=== PATIENT | female | born 1985 | race Two or more races ===

== ENCOUNTER 2022-02-10 14:05 | Emergency (ER) | payer MEDICAID ==
[~2022-02-10] VITALS: Ht 172.7 cm; Wt 45.5 kg
[2022-02-10] MEDS ORDERED: HYDROcodone-ACET 5/325MG TAB PO ONE (16:00)
[2022-02-10] MEDS ORDERED: amLODIPine BESYLATE 5 MG TAB PO ONE (16:00)
[2022-02-10 16:54] VITALS: BP 160/109
== END 2022-02-10 16:53 | disposition home or self-care (01) ==
LOC: ER 14:09
DX: I10 Essential (primary) hypertension (principal)
CPT/HCPCS: 81025

== ENCOUNTER 2024-06-05 10:55 | Inpatient (IN) | payer MEDICAID ==
[~2024-06-05] VITALS: Ht 172.7 cm; Wt 77.5 kg
[2024-06-05 12:08] LABS: Urine Bacteria FEW /hpf (None Seen); Urine Blood Negative /uL (Negative); Urine Clarity Ex.Turbid (Clear); Urine Color Orange (Yellow); Urine Hyaline Cast MANY /lpf (0 - 2); Urine Mucus MODERATE (None Seen); Urine Protein, UAD 2+ (Negative); Urine Specific Gravity 1.026 (1.001-1.035); Urine Squamous Epithelial Cell MOD /hpf (<5); Urine Urobilinogen 12 mg/dL (Negative); Urine WBC 290 /hpf (0 - 5); Urine pH 6.5 (5.0-9.0)
--- NOTE | 2024-06-05 12:08 | ED.PDOC ---
GI ASSESSMENT HPI Comments A 38 YEAR OLD FEMALE PRESENTS TO THE ED WITH COMPLAINT OF NAUSEA, VOMITING, AND PAINFUL URINATION. PATIENT STATES SHE HAS BEEN EXPERIENCING NAUSEA, VOMITING, AND PAINFUL URINATION FOR THE PAST 1 WEEK. PATIENT REPORTS SHE HAS BEEN UNABLE TO HOLD ANYTHING DOWN A RESULT OF HER SYMPTOMS. PATIENT DENIES HEMATURIA, FLANK PAIN, FEVER, CHILLS, SHORTNESS OF BREATH, CHEST PAIN, ABDOMINAL PAIN, HEADACHE, OR OTHER COMPLAINTS. NO OTHER SYMPTOMS OR MODIFYING FACTORS AT THIS TIME. PATIENT IS ALERT, ORIENTED X 4, AND HAS STEADY GAIT. 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 Pertinent TOOL HONING MACHINE SET UP OPERATOR History Family History Family History: Reviewed,noncontributory to illness, No family hx of Cancer, No family hx of DM, No family hx of Heart raj, No family hx of HTN, No family hx ofKidney raj, No family hx of Liver raj, No family hx of Lung raj, No family hx of Stroke Social History Smoker: Non-Smoker Alcohol: Denies ETOH Use Drugs: Denies Drug Use Lives In: Home Constitutional: denies: chills, diaphoresis, fatigue, fever, malaise, sweats, weakness, others EENTM: denies: blurred vision, double vision, ear bleeding, ear discharge, ear drainage, ear pain, ear ringing, eye pain, eye redness, hearing loss, mouth pain, mouth swelling, nasal discharge, nose bleeding, nose congestion, nose pain, photophobia, tearing, throat pain, throat swelling, voice changes, others Respiratory: denies: cough, hemoptysis, orthopnea, SOB at rest, shortness of breath, SOB with excertion, stridor, wheezing, others Cardiovascular: denies: chest pain, dizzy spells, diaphoresis, Dyspnea on exertion, edema, irregular heart beat, left arm pain, lightheadedness, palpitations, PND, syncope, others Gastrointestinal: reports: nausea, vomiting; denies: abdomen distended, abdominal pain, blood streaked bowels, constipated, diarrhea, dysphagia, diffic ulty swallowing, hematemesis, melena, poor appetite, poor fluid intake, rectal bleeding, rectal pain, others Genitourinary: reports: burning, dysuria; denies: abnormal vagina bleeding, dyspareunia, flank pain, frequency, hematuria, incontinence, pain, , vagina discharge, urgency, others Neurological: denies: dizziness, fainting, headache, left sided numbness, left sided weakness, numbness, paresthesia, pre-existing deficit, right sided numbness, right sided weakness, seizure, speech problems, tingling, tremors, weakness, others Musculoskeletal: denies: back pain, gout, joint pain, joint swelling, muscle pain, muscle stiffness, neck pain, others Integumetry: denies: bruises, change in color, change in hair/nails, dryness, laceration, lesions, lumps, rash, wounds, others Allergic/Immunocompromised: denies: Difficulty Healing, Frequent Infections, Hives, Itching, others Hematologic/Lymphatic: denies: anemia, blood clots, easy bleeding, easy bruising, swollen glands, others Endocrine: denies: excessive hunger, excessive sweating, excessive thirst, excessive urination, flushing, intolerance to cold, intolerance to heat, unexplained weight gain, unexplained weight loss, others Psychiatric: denies: anxiety, bipolar disorder, depression, hopeless, panic disorder, schizophrenia, sleepless, suicidal, others All Other Systems: Reviewed and Negative Physical Exam General Appearance: No Apparent Distress, Normal HEENT: Normal ENT Inspection, PERRL/EOMI, Pharynx Normal, TMs Normal Neck: Full Range of Motion, Non-Tender, Normal, Normal Inspection Respiratory: Chest Non-Tender, Lungs Clear, No Accessory Muscle Use, No Respiratory Distress, Normal Breath Sounds Cardiovascular: No Edema, No JVD, No Murmur, No Gallop, Normal Peripheral Pulses, Regular Rate/Rhythm Breast Exam: Deferred Gastrointestinal: No Organomegaly, Non Tender, No Pulsatile Mass, Normal Bowel Sounds, Soft Genitalia: Deferred Pelvic: Deferred Rectal: Deferred Extremities: No calf tenderness, Normal capillary refill, Normal inspection, Normal range of motion, Non-tender, No pedal edema Musculoskeletal : Apperance: Normal Neurologic: Alert, rope tow operator II-XII nml as Tested, No Motor Deficits, Normal Affect, Normal Mood, No Sensory Deficits Cerebellar Function: Normal Reflexes: Normal Skin: Dry, Normal Color, Warm Peripheral Pulses: 2+ carotid (R), 2+ carotid (L) Lymphatic: No Adenopathy Was a procedure done? Was a procedure done?: No GI differential Dx Differential Diagnosis: Gastritis/PUD, Inflammatory BD, UTI, Dehydration, Food Poisoning, , Viral X-Ray, Labs, Meds, VS Vital Signs Date Time Temp Pulse Resp B/P (MAP) Pulse Ox O2 Delivery O2 Flow Rate FiO2 06/05/24 11:46 98.2 117 20 94/79 (84) 98 98.2 06/05/24 11:46 117 20 98 Room Air 06/05/24 11:36 98.2 117 20 94/79 (84) 98 Lab Test 06/05/24 12:00 06/05/24 11:31 Range/Units White Blood Count 6.0 4.4-10.8 10^3/uL Red Blood Count 4.23 4.0-5.20 10^6/uL Hemoglobin 14.6 12.2-16.2 g/dL Hematocrit 43.4 36.0-46.0 % Mean Corpuscular Volume 102.7 H 80.0-100.0 fL Mean Corpuscular Hemoglobin 34.6 H 28.0-32.0 pg Mean Corpuscular Hemoglobin Concent 33.7 32.0-36.0 g/dL Red Cell Distribution Width 15.5 H 11.8-14.3 % Platelet Count 290 140-450 10^3/uL Mean Platelet Volume 8.9 6.9-10.8 fL Neutrophils (%) (Auto) 52.2 37.0-80.0 % Lymphocytes (%) (Auto) 32.2 10.0-50.0 % Monocytes (%) (Auto) 12.6 H 0.0-12.0 % Eosinophils (%) (Auto) 1.9 0.0-7.0 % Basophils (%) (Auto) 1.1 0.0-2.0 % Neutrophils # (Auto) 3.2 1.6-8.6 10 ^3/uL Lymphocytes # (Auto) 1.9 0.4-5.4 10 ^3/uL Monocytes # (Auto) 0.8 0-1.3 10 ^3/uL Eosinophils # (Auto) 0.1 0-0.8 10 ^3/uL Basophils # (Auto) 0.1 0-0.2 10 ^3/uL Nucleated Red Blood Cells 0.1 % Sodium Level 134 L 136-145 mmol/L Potassium Level 2.5 *L 3.5-5.1 mmol/L Chloride Level 94 L 98-107 mmol/L Carbon Dioxide Level 24 20-31 mmol/L Anion Gap 16 H 5-15 Blood Urea Nitrogen 13 9-23 mg/dL Creatinine 1.05 H 0.550-1.02 mg/dL Glomerular Filtration Rate Calc 69 >90 mL/min BUN/Creatinine Ratio 12.4 10.0-20.0 Serum Glucose 133 H 74-106 mg/dL Calcium Level 10.8 H 8.7-10.4 mg/dL Urine Color [place] H Yellow Urine Clarity Ex.turbid Clear Urine pH 6.5 5.0-9.0 Urine Specific [place] 1.026 1.001-1.035 Urine Protein 2+ H Negative Urine Ketones 1+ H Negative Urine Blood Negative Negative /uL Urine Nitrite Negative Negative Urine Bilirubin 2+ H Negative Urine Urobilinogen 12 H Negative mg/dL Urine Leukocyte Esterase 3+ Negative /uL Urine RBC 21 0 - 4 /hpf Urine WBC 290 0 - 5 /hpf Urine Squamous Epithelial Cells Mod <5 /hpf Urine Bacteria Few H None Seen /hpf Urine Hyaline Casts Many 0 - 2 /lpf Urine Mucus Moderate None Seen Urine Glucose Normal Normal mg/dL Urine Test Negative Negative Current Medications Medications (Trade) Dose Ordered Sig/Joelle Route Start Time Stop Time Status Last Admin Sodium Chloride 1,000 ml @ 1,000 mls/hr Q1H ONCE IV 06/05/24 12:00 06/05/24 12:59 DC 06/05/24 12:16 Potassium Bicarbonate (Klor-Con/Ef) 75 meq ONCE ONCE PO 06/05/24 12:45 06/05/24 12:46 DC 06/05/24 13:03 Sodium Chloride 1,000 ml @ 1,000 mls/hr Q1H ONCE IV 06/05/24 12:45 06/05/24 13:44 DC 06/05/24 13:35 X-Ray, Labs, Meds, VS Comment EXTERNAL MEDICAL RECORDS REVIEWED: [NONE] INDEPENDENT HISTORIANS: [NONE] SOCIAL DETERMINANTS OF HEALTH: [NONE] LABS ORDERED: CBC, BMP, UA, URINE REVIEWED AND INTERPRETED RESULTS: NA 134, K 2.5, GLUC 133, LEUKO 3+, KET 1+ IMAGING ORDERED: NONE TREATMENTS ORDERED: NS 2L IV, ZOFRAN 4 MG IV, POTASSIUM 75 MEQ [address] ROCEPHIN 1 G IV PROCEDURES PERFORMED: NONE CRITICAL CARE TIME: NONE I HAVE DISCUSSED THE PATIENT WITH THE ATTENDING PHYSICIAN DR. MOYA AND HE AGREES WITH THE PATIENT'S PLAN OF CARE. UPON MY PHYSICAL EXAMINATION, THE PATIENT WAS ILL IN APPEARANCE, BUT WAS IN NO ACUTE DISTRESS AT THIS TIME, PATIENT HAD NO GUARDING OR REBOUND TENDERNESS NOTED UPON PALPATION TO HER ABDOMEN. MY DIFFERENTIAL DIAGNOSIS INCLUDES, UTI, ACUTE CYSTITIS, GASTRITIS, DEHYDRATION, ELECTROLYTE IMBALANCE, VIRAL SYNDROME, FOOD POISONING, HYPOKALEMIA. LABS WERE ORDERED FOR THE PATIENT WHICH REVEALED A SODIUM OF 134, POTASSIUM OF 2.5, GLUCOSE OF 133, LEUKOCYTES 3+ IN HER URINE, AND KETONES 1+ IN HER URINE. PATIENT WAS MEDICATED HERE IN THE ED WITH 2 L NORMAL SALINE IV, ZOFRAN 4 MG IV, POTASSIUM [address] AND ROCEPHIN 1 G IV. DUE TO THE PATIENT'S INTRACTABLE NAUSEA AND VOMITING URINARY TRACT INFECTION, AND HYPOKALEMIA, I HAVE DETERMINED THE PATIENT NEEDS TO BE ADMITTED FOR FURTHER TREATMENT AND EVALUATION. THE ON-CALL HOSPITALIST WILL BE CONTACTED FOR ADMISSION OF THIS PATIENT. Time of 1ST Reevaluation: 13:00 Reevaluation 1ST: Unchanged Patient Education/Counseling: Diagnosis, Treatment Family Education/Counseling: Diagnosis, Treatment Departure 1 Departure Time of Disposition: 13:00 Impression: Primary Impression: Intractable nausea and vomiting Additional Impressions: Acute UTI (urinary tract infection) Hypokalemia Disposition: ADMITTED INPATIENT Admit to: Med Surg Condition: Serious Critical Care Note Critical Care Time?: No Stability Stability form required: No Unstable for transfer: Requires medication, ED Physician Assesment, Possible rapid decline I personally scribed for KISHORE GRIFFITH ([email or web address]) on 06/05/24 at 12:08. Electronically submitted by Giles Moreno ([email or web address]). I personally scribed for KISHORE GRIFFITH ([email or web address]) on 06/05/24 at 13:30. Electronically submitted by Giles Moreno ([email or web address]). KISHORE GRIFFITH Jun 05, 2024 12:08
[2024-06-05] MEDS: SODIUM CHLORIDE 0.9% 1,000 ML IV ONE ×2 (12:16→13:35)
[2024-06-05 12:17] LABS: Basophils # (auto) 0.1 10 ^3/uL (0-0.2); Basophils % (auto) 1.1 % (0.0-2.0); Eosinophils # (auto) 0.1 10 ^3/uL (0-0.8); Eosinophils % (auto) 1.9 % (0.0-7.0); Hematocrit 43.4 % (36.0-46.0); Hemoglobin 14.6 g/dL (12.2-16.2); Lymphocytes # (auto) 1.9 10 ^3/uL (0.4-5.4); Lymphocytes % (auto) 32.2 % (10.0-50.0); Mean Corpuscular Hemoglobin 34.6 pg (28.0-32.0); Mean Corpuscular Hgb Conc. 33.7 g/dL (32.0-36.0); Mean Corpuscular Volume 102.7 fL (80.0-100.0); Monocytes # (auto) 0.8 10 ^3/uL (0-1.3); Monocytes % (auto) 12.6 % (0.0-12.0); Neutrophils # (auto) 3.2 10 ^3/uL (1.6-8.6); Neutrophils % (auto) 52.2 % (37.0-80.0); Nucleated Red Blood Cells % 0.1 %; Platelet Count (auto) 290 10^3/uL (140-450); Red Blood Cells 4.23 10^6/uL (4.0-5.20); Red Cell Distribution Width 15.5 % (11.8-14.3)
[2024-06-05] MEDS: ONDANSETRON HCL 4 MG/2 ML VIAL IV ONE (12:20)
[2024-06-05 12:24] LABS: Anion Gap 16 (5-15); Carbon Dioxide 24 mmol/L (20-31)
[2024-06-05 12:30] LABS: BUN/Creatinine Ratio 12.4 (10.0-20.0); Blood Urea Nitrogen 13 mg/dL (9-23)
[2024-06-05 12:34] LABS: Calcium 10.8 mg/dL (8.7-10.4); Chloride 94 mmol/L (98-107); Glucose 133 mg/dL (74-106); Sodium 134 mmol/L (136-145)
[2024-06-05 12:36] LABS: Potassium 2.5 mmol/L (3.5-5.1)
[2024-06-05] MEDS: cefTRIAXone 1GM/50ML D5W 50 ML IV ONE (12:50)
[2024-06-05] MEDS: POTASSIUM EFFERVESENT TAB 25 MEQ PO ONE (13:03)
[2024-06-05] MEDS ORDERED: METOCLOPRAMIDE HCL 5MG/ml INJ 2ml VIAL IV ONE (14:15)
[2024-06-05] MEDS ORDERED: HYDROcodone-ACET 5/325MG TAB PO PRN (16:30)
--- NOTE | 2024-06-05 16:45 | DVHHP2 ---
History of Present Illness Reason for Visit: Nausea, vomiting, and dysuria History of Present Illness Emma Funk is a 38-year-old female with past medical history of hypertension and anxiety who presents to the ED for nausea, vomiting, and dysuria x1 week. Patient states that she has been having the symptoms and unable to hold food down. Patient also reports that she has no recent sick contacts nor has she been sick recently nor she ingested any spoiled food, denies chest pain, shortness of breath, abdominal pain, hematuria, urinary frequency, dizziness, fever, chills, chest pain, and lightheadedness. Cardiovascular: HTN Psych: Anxiety Past Surgical History: None Family History: Cancer, DM, Other (Mom with diabetes living and dad with lung cancer now ) Smoke: No ALCOHOL: none Drugs: None Lives: with Family Domestic Violence: Neg Review of Systems Constitutional: No: Fever, Chills, Sweats, Weakness, Malaise, Other Eyes: No: Pain, Vision change, Conjunctivae inflammation, Eyelid inflammation, Other, Redness ENT: No: Ear pain, Ear discharge, Nose pain, Nose discharge, Nose congestion, Mouth pain, Mouth swelling, Throat pain, Throat swelling, Other Respiratory: No: Cough, Dry, Shortness of breath, SOB with excertion, Wheezing, Hemoptysis, Pleuritic Pain, Sputum, Wheezing, Other Cardiovascular: No: Chest Pain, Palpitations, Orthopnea, Paroxysmal Noc. Dyspnea, Edema, Lt Headedness, Other Gastrointestinal: Nausea, Vomiting; No: Abdominal Pain, Diarrhea, Constipation, Melena, Hematochezia, Other Genitourinary: Dysuria; No Frequency, No Incontinence, No Hematuria, No Retention, No Other Musculoskeletal: No: other, neck pain, shoulder pain, arm pain, back pain, hand pain, leg pain, foot pain Skin: No: Rash, Lesions, Jaundice, Bruising, Other Neurological: No: Weakness, Numbness, Incoordination, Change in speech, Confusion, Seizures, Other Allergies: Coded Allergies: NO KNOWN ALLERGIES (Unverified , 04/22/12) Exam Vital Signs Vital Signs Date Time Temp Pulse Resp B/P (MAP) Pulse Ox O2 Delivery O2 Flow Rate FiO2 06/05/24 11:46 98.2 117 20 94/79 (84) 98 98.2 06/05/24 11:46 Room Air General Appearance: Alert, Oriented X3, Cooperative, No acute distress HEENT: Atraumatic, PERRLA, EOMI, Mucous membr. moist/pink Respiratory: Clear to auscultation, Normal air movement Cardiovascular: Regular rate, Normal S1, Normal S2, No murmurs Abdominal: Normal bowel sounds, Soft, No tenderness, No hepatospenomegaly, No masses Extremities: No clubbing, No cyanosis, No edema, Normal pulses, No tenderness/swelling Skin: No rashes, No breakdown, No significant lesion Neuro: Normal gait, Normal speech, Strength at 5/5 X4 ext, Normal tone, Sensation intact Psych/Mental Status: Mental status NL, Mood NL Labs/Xrays Labs Test 06/05/24 12:00 06/05/24 11:31 Range/Units White Blood Count 6.0 4.4-10.8 10^3/uL Red Blood Count 4.23 4.0-5.20 10^6/uL Hemoglobin 14.6 12.2-16.2 g/dL Hematocrit 43.4 36.0-46.0 % Mean Corpuscular Volume 102.7 H 80.0-100.0 fL Mean Corpuscular Hemoglobin 34.6 H 28.0-32.0 pg Mean Corpuscular Hemoglobin Concent 33.7 32.0-36.0 g/dL Red Cell Distribution Width 15.5 H 11.8-14.3 % Platelet Count 290 140-450 10^3/uL Mean Platelet Volume 8.9 6.9-10.8 fL Neutrophils (%) (Auto) 52.2 37.0-80.0 % Lymphocytes (%) (Auto) 32.2 10.0-50.0 % Monocytes (%) (Auto) 12.6 H 0.0-12.0 % Eosinophils (%) (Auto) 1.9 0.0-7.0 % Basophils (%) (Auto) 1.1 0.0-2.0 % Neutrophils # (Auto) 3.2 1.6-8.6 10 ^3/uL Lymphocytes # (Auto) 1.9 0.4-5.4 10 ^3/uL Monocytes # (Auto) 0.8 0-1.3 10 ^3/uL Eosinophils # (Auto) 0.1 0-0.8 10 ^3/uL Basophils # (Auto) 0.1 0-0.2 10 ^3/uL Nucleated Red Blood Cells 0.1 % Sodium Level 134 L 136-145 mmol/L Potassium Level 2.5 *L 3.5-5.1 mmol/L Chloride Level 94 L 98-107 mmol/L Carbon Dioxide Level 24 20-31 mmol/L Anion Gap 16 H 5-15 Blood Urea Nitrogen 13 9-23 mg/dL Creatinine 1.05 H 0.550-1.02 mg/dL Glomerular Filtration Rate Calc 69 >90 mL/min BUN/Creatinine Ratio 12.4 10.0-20.0 Serum Glucose 133 H 74-106 mg/dL Calcium Level 10.8 H 8.7-10.4 mg/dL Urine Color [place] H Yellow Urine Clarity Ex.turbid Clear Urine pH 6.5 5.0-9.0 Urine Specific [place] 1.026 1.001-1.035 Urine Protein 2+ H Negative Urine Ketones 1+ H Negative Urine Blood Negative Negative /uL Urine Nitrite Negative Negative Urine Bilirubin 2+ H Negative Urine Urobilinogen 12 H Negative mg/dL Urine Leukocyte Esterase 3+ Negative /uL Urine RBC 21 0 - 4 /hpf Urine WBC 290 0 - 5 /hpf Urine Squamous Epithelial Cells Mod <5 /hpf Urine Bacteria Few H None Seen /hpf Urine Hyaline Casts Many 0 - 2 /lpf Urine Mucus Moderate None Seen Urine Glucose Normal Normal mg/dL Urine Test Negative Negative Assessment/Plan Assessment/Plan Assessment/Plan: UTI Hyponatremia ROBBIE Labs A.m. labs IV Abx - ceftriaxone Antiemetics UA NS 2 L given in ED Urine bacterial culture test negative IV fluids Hypokalemia Replete lytes Chronic hypertension Patient states she does not take any medications Chronic anxiety Follow up outpatient with PCP FEN/PPX diet IVf DVT prophylaxis -not indicated patient ambulating PUD prophylaxis - not indicated no history of GERD or GI bleed Discussed plan with patient, patient's mother and nurse Admit to med surge No home meds to reconcile Plan discussed with: Patient Date of Service: Jun 05, 2024 Billing Provider: KRISTINA LUU Common Visit Codes: [id number] INP/OBS CARE (HIGH) KRISTINA LUU Jun 05, 2024 16:45
[2024-06-05] MEDS: SODIUM CHLORIDE 0.9% 1,000 ML IV SCH (17:12)
[2024-06-05 18:30] VITALS: PULSE 88; RESP 18; O2SAT 99
[2024-06-05 20:04] VITALS: PULSE 88; RESP 18; O2SAT 99
[2024-06-05 22:00] VITALS: BP 110/72; PULSE 86; RESP 18; TEMP 98.8; O2SAT 96
[2024-06-06] VITALS (7 sets, daily range): BP systolic 102–134; BP diastolic 50–90; PULSE 70–82; RESP 16–20; TEMP 97.5–98.9; O2SAT 91–99
[2024-06-06 06:05] LABS: Basophils # (auto) 0 10 ^3/uL (0-0.2); Eosinophils # (auto) 0.1 10 ^3/uL (0-0.8); Hemoglobin 11.4 g/dL (12.2-16.2); Lymphocytes # (auto) 1.8 10 ^3/uL (0.4-5.4); Monocytes # (auto) 0.5 10 ^3/uL (0-1.3); White Blood Cell 3.7 10^3/uL (4.4-10.8)
[2024-06-06 06:10] LABS: Basophils % (auto) 0.9 % (0.0-2.0); Eosinophils % (auto) 2.9 % (0.0-7.0); Hematocrit 33.2 % (36.0-46.0); Lymphocytes % (auto) 49.1 % (10.0-50.0); Mean Corpuscular Hemoglobin 34.4 pg (28.0-32.0); Mean Corpuscular Hgb Conc. 34.3 g/dL (32.0-36.0); Mean Corpuscular Volume 100.3 fL (80.0-100.0); Monocytes % (auto) 12.7 % (0.0-12.0); Neutrophils # (auto) 1.3 10 ^3/uL (1.6-8.6); Neutrophils % (auto) 34.4 % (37.0-80.0); Nucleated Red Blood Cells % 0.3 %; Platelet Count (auto) 142 10^3/uL (140-450); Red Blood Cells 3.31 10^6/uL (4.0-5.20); Red Cell Distribution Width 15.3 % (11.8-14.3)
[2024-06-06 06:28] LABS: Alkaline Phosphatase 67 U/L (46-116); Anion Gap 13 (5-15); BUN/Creatinine Ratio 12.9 (10.0-20.0); Calcium 8.8 mg/dL (8.7-10.4); Carbon Dioxide 25 mmol/L (20-31); Chloride 101 mmol/L (98-107); Glucose 81 mg/dL (74-106); Sodium 139 mmol/L (136-145)
[2024-06-06 06:29] LABS: Albumin 3.7 g/dL (3.2-4.8); Bilirubin, Total 0.7 mg/dL (0.2-1.0)
[2024-06-06 06:30] LABS: Total Protein 6.5 g/dL (5.7-8.2)
[2024-06-06 06:59] LABS: Alanine Aminotransferase 48 U/L (7-40); Aspartate Aminotransferase 102 U/L (13-40); Blood Urea Nitrogen 9 mg/dL (9-23)
[2024-06-06 07:00] LABS: Potassium 2.4 mmol/L (3.5-5.1)
[2024-06-06] MEDS: cefTRIAXone 1GM/50ML D5W 50 ML IV SCH (08:50)
[2024-06-06] MEDS: MAGNESIUM SULFATE 1GM/100ML 100 ML IV ONE (09:17)
[2024-06-06] MEDS: ONDANSETRON HCL 4 MG/2 ML VIAL IV PRN (09:17)
[2024-06-06] MEDS: POTASSIUM CHL 20MEQ/100ML 100 ML IV SCH (09:28)
--- NOTE | 2024-06-06 14:08 | DVHPN2 ---
Reviewed: Care Plan, H&P, Labs, Medications, Previous Orders, Radiology Changes from previous H/P or p: No Changes Eyes: No Pain, No Vision change, No Conjunctivae inflammation, No Eyelid inflammation, No Other, No Redness ENT: No Ear pain, No Ear discharge, No Nose pain, No Nose discharge, No Nose congestion, No Mouth pain, No Mouth swelling, No Throat pain, No Throat swelling, No Other Cardiovascular: No Chest Pain, No Palpitations, No Orthopnea, No Paroxysmal Noc. Dyspnea, No Edema, No Lt Headedness, No Other Respiratory: No Cough, No Dry, No Shortness of breath, No SOB with excertion, No Wheezing, No Hemoptysis, No Pleuritic Pain, No Sputum, No Other Gastrointestinal: Nausea, Vomiting; No Abdominal Pain, No Diarrhea, No Constipation, No Melena, No Hematochezia, No Other Genitourinary: Dysuria; No Frequency, No Incontinence, No Hematuria, No Retention, No Other Musculoskeletal: No other, No neck pain, No shoulder pain, No arm pain, No back pain, No hand pain, No leg pain, No foot pain Skin: No Rash, No Lesions, No Jaundice, No Bruising, No Other Objective Vitals Vital Signs Date Time Temp Pulse Resp B/P (MAP) Pulse Ox O2 Delivery O2 Flow Rate FiO2 06/06/24 13:00 98.2 74 18 102/79 (87) 99 98.2 06/06/24 08:00 Room Air* 0 21 Intake/Output Intake and Output 06/06/24 07:00 Intake Total 2420 ml Balance 2420 ml Intake Oral 300 ml IV Total 2120 ml # Voids 2 # Bowel Movements 2 Medications Current Medications Medications Dose Ordered Sig/Joelle Route Start Time Stop Time Status Last Admin Dose Admin Ceftriaxone Sodium 50 ml @ 100 mls/hr DAILY@09 IV 06/06/24 09:00 06/06/24 08:50 100 MLS/HR Sodium Chloride 1,000 ml @ 70 mls/hr [id number] IV 06/05/24 16:30 06/06/24 07:02 70 MLS/HR Acetaminophen/ Hydrocodone Bitart 1 tab Q4HP PRN PO 06/05/24 16:30 Ondansetron HCl 4 mg Q4HP PRN IV 06/05/24 16:30 06/06/24 09:17 4 MG Acetaminophen 650 mg Q6HP PRN PO 06/05/24 16:30 Laboratory Results Laboratory Tests 06/06/24 05:00 Chemistry Test 06/06/24 05:00 Albumin 3.7 g/dL (3.2-4.8) Calcium Level 8.8 mg/dL (8.7-10.4) Total Protein 6.5 g/dL (5.7-8.2) LFT Test 06/06/24 05:00 Alanine Aminotransferase (ALT) 48 U/L (7-40) H Alkaline Phosphatase 67 U/L (46-116) Aspartate Amino Transferase (AST) 102 U/L (13-40) H Total Bilirubin 0.7 mg/dL (0.2-1.0) Urinalysis Test 06/05/24 11:31 Urine Color [place] (Yellow) H Urine Clarity Ex.turbid (Clear) Urine pH 6.5 (5.0-9.0) Urine Specific [place] 1.026 (1.001-1.035) Urine Protein 2+ (Negative) H Urine Ketones 1+ (Negative) H Urine Blood Negative /uL (Negative) Urine Nitrite Negative (Negative) Urine Bilirubin 2+ (Negative) H Urine Urobilinogen 12 mg/dL (Negative) H Urine Leukocyte Esterase 3+ /uL (Negative) Urine RBC 21 /hpf (0 - 4) Urine WBC 290 /hpf (0 - 5) Urine Squamous Epithelial Cells Mod /hpf (<5) Urine Bacteria Few /hpf (None Seen) H Urine Hyaline Casts Many /lpf (0 - 2) Urine Mucus Moderate (None Seen) Urine Glucose Normal mg/dL (Normal) Urine Test Negative (Negative) Microbiology Microbiology Date/Time Source Procedure Growth Status 06/05/24 11:31 Voided Urine Urine Culture - Preliminary Resulted Labs and/or images reviewed: Labs reviewed by me, Image(s) reviewed by me Assessment/Plan Assessment/Plan Sepsis secondary to acute urinary tract infection: Blood cultures urine cultures Acute urinary tract infection: Rocephin Acute hyponatremia [place] Acute hypokalemia potassium 2.5: Replace potassium Hypertension Chronic anxiety Plan discussed with: Patient My Orders Orders - BAILEE CONCEPCION MD Procedure Category Date Status Time Blood Culture HUMERA 06/06/24 Verified 14:00 Date of Service: Jun 06, 2024 Billing Provider: BAILEE CONCEPCION MD Common Visit Codes: [id number] INP/OBS CARE(HIGH) BAILEE CONCEPCION MD Jun 06, 2024 14:08
[2024-06-06] MEDS: POTASSIUM EFFERVESENT TAB 25 MEQ PO ONE (14:48)
[2024-06-06 18:24] LABS: Basophils # (auto) 0 10 ^3/uL (0-0.2); Eosinophils # (auto) 0.1 10 ^3/uL (0-0.8); Hemoglobin 12.2 g/dL (12.2-16.2); Lymphocytes # (auto) 1.6 10 ^3/uL (0.4-5.4); Monocytes # (auto) 0.5 10 ^3/uL (0-1.3); Neutrophils # (auto) 2.1 10 ^3/uL (1.6-8.6); Nucleated Red Blood Cells % 0.1 %
[2024-06-06 18:28] LABS: Eosinophils % (auto) 2.3 % (0.0-7.0); Hematocrit 35.7 % (36.0-46.0); Mean Corpuscular Hemoglobin 34.6 pg (28.0-32.0); Mean Corpuscular Hgb Conc. 34.2 g/dL (32.0-36.0); Mean Corpuscular Volume 101.1 fL (80.0-100.0); Monocytes % (auto) 11.7 % (0.0-12.0); Platelet Count (auto) 181 10^3/uL (140-450); Red Blood Cells 3.53 10^6/uL (4.0-5.20); Red Cell Distribution Width 15.1 % (11.8-14.3); White Blood Cell 4.3 10^3/uL (4.4-10.8)
[2024-06-06 18:43] LABS: Albumin 4.1 g/dL (3.2-4.8); Alkaline Phosphatase 72 U/L (46-116); Anion Gap 14 (5-15); Calcium 9.3 mg/dL (8.7-10.4); Carbon Dioxide 22 mmol/L (20-31); Chloride 101 mmol/L (98-107); Glucose 87 mg/dL (74-106); Potassium 3.6 mmol/L (3.5-5.1); Sodium 137 mmol/L (136-145)
[2024-06-06 18:44] LABS: Alanine Aminotransferase 54 U/L (7-40); Aspartate Aminotransferase 113 U/L (13-40); Bilirubin, Total 0.6 mg/dL (0.2-1.0); Blood Urea Nitrogen 6 mg/dL (9-23); Total Protein 7.1 g/dL (5.7-8.2)
[2024-06-06] MEDS: ACETAMINOPHEN 325 MG TAB PO PRN (22:43)
[2024-06-07 05:00] VITALS: BP 93/66; PULSE 69; RESP 17; TEMP 98.4; O2SAT 95
[2024-06-07 06:06] LABS: Basophils # (auto) 0 10 ^3/uL (0-0.2); Basophils % (auto) 0.7 % (0.0-2.0); Eosinophils # (auto) 0.1 10 ^3/uL (0-0.8); Eosinophils % (auto) 2.7 % (0.0-7.0); Lymphocytes # (auto) 1.9 10 ^3/uL (0.4-5.4); Monocytes # (auto) 0.4 10 ^3/uL (0-1.3); Neutrophils # (auto) 1.2 10 ^3/uL (1.6-8.6); Platelet Count (auto) 135 10^3/uL (140-450)
[2024-06-07 06:09] LABS: Hematocrit 33.5 % (36.0-46.0); Hemoglobin 11.4 g/dL (12.2-16.2); Mean Corpuscular Hgb Conc. 34.1 g/dL (32.0-36.0); Mean Corpuscular Volume 102.6 fL (80.0-100.0); Monocytes % (auto) 10.8 % (0.0-12.0); Neutrophils % (auto) 32.8 % (37.0-80.0); Nucleated Red Blood Cells % 0.3 %; Red Blood Cells 3.27 10^6/uL (4.0-5.20); White Blood Cell 3.5 10^3/uL (4.4-10.8)
[2024-06-07 06:29] LABS: Alanine Aminotransferase 39 U/L (7-40); Alkaline Phosphatase 63 U/L (46-116); Anion Gap 9 (5-15); Calcium 8.8 mg/dL (8.7-10.4); Carbon Dioxide 25 mmol/L (20-31); Chloride 105 mmol/L (98-107); Glucose 93 mg/dL (74-106); Sodium 139 mmol/L (136-145)
[2024-06-07 06:30] LABS: Bilirubin, Total 0.5 mg/dL (0.2-1.0)
[2024-06-07 06:37] LABS: Aspartate Aminotransferase 75 U/L (13-40); BUN/Creatinine Ratio 7.9 (10.0-20.0); Blood Urea Nitrogen < 5 mg/dL (9-23); Potassium 2.9 mmol/L (3.5-5.1)
[2024-06-07 06:51] LABS: Albumin 3.3 g/dL (3.2-4.8)
[2024-06-07 08:00] VITALS: PULSE 79; RESP 18; O2SAT 98
[2024-06-07 08:31] VITALS: BP 95/49; PULSE 64; RESP 20; TEMP 98; O2SAT 97
[2024-06-07] MEDS ORDERED: CIPR-173 PO (09:33)
[2024-06-07] MEDS ORDERED: ZOFR4T PO (09:33)
[2024-06-07] MEDS ORDERED: POTA-180 PO (09:33)
--- NOTE | 2024-06-07 09:36 | DVHPN2 ---
Reviewed: Care Plan, H&P, Labs, Medications, Previous Orders, Radiology Changes from previous H/P or p: No Changes Eyes: No Pain, No Vision change, No Conjunctivae inflammation, No Eyelid inflammation, No Other, No Redness ENT: No Ear pain, No Ear discharge, No Nose pain, No Nose discharge, No Nose congestion, No Mouth pain, No Mouth swelling, No Throat pain, No Throat swelling, No Other Cardiovascular: No Chest Pain, No Palpitations, No Orthopnea, No Paroxysmal Noc. Dyspnea, No Edema, No Lt Headedness, No Other Respiratory: No Cough, No Dry, No Shortness of breath, No SOB with excertion, No Wheezing, No Hemoptysis, No Pleuritic Pain, No Sputum, No Other Gastrointestinal: Nausea, Vomiting; No Abdominal Pain, No Diarrhea, No Constipation, No Melena, No Hematochezia, No Other Genitourinary: Dysuria; No Frequency, No Incontinence, No Hematuria, No Retention, No Other Musculoskeletal: No other, No neck pain, No shoulder pain, No arm pain, No back pain, No hand pain, No leg pain, No foot pain Skin: No Rash, No Lesions, No Jaundice, No Bruising, No Other Objective Vitals Vital Signs Date Time Temp Pulse Resp B/P (MAP) Pulse Ox O2 Delivery O2 Flow Rate FiO2 06/07/24 08:31 98.0 64 20 95/49 (64) 97 98.0 06/06/24 20:00 Room Air* 0 21 Intake/Output Intake and Output 06/07/24 07:00 Intake Total 1490 ml Balance 1490 ml Intake Oral 1490 ml # Voids 4 # Bowel Movements 3 Medications Current Medications Medications Dose Ordered Sig/Joelle Route Start Time Stop Time Status Last Admin Dose Admin Ceftriaxone Sodium 50 ml @ 100 mls/hr DAILY@09 IV 06/06/24 09:00 06/07/24 09:21 100 MLS/HR Sodium Chloride 1,000 ml @ 70 mls/hr [id number] IV 06/05/24 16:30 06/06/24 21:06 70 MLS/HR Acetaminophen/ Hydrocodone Bitart 1 tab Q4HP PRN PO 06/05/24 16:30 Ondansetron HCl 4 mg Q4HP PRN IV 06/05/24 16:30 06/06/24 09:17 4 MG Acetaminophen 650 mg Q6HP PRN PO 06/05/24 16:30 06/06/24 22:43 650 MG Laboratory Results Laboratory Tests 06/07/24 05:41 Chemistry Test 06/06/24 17:55 06/07/24 05:41 Albumin 4.1 g/dL (3.2-4.8) 3.3 g/dL (3.2-4.8) Calcium Level 9.3 mg/dL (8.7-10.4) 8.8 mg/dL (8.7-10.4) Total Protein 7.1 g/dL (5.7-8.2) 6.0 g/dL (5.7-8.2) LFT Test 06/06/24 17:55 06/07/24 05:41 Alanine Aminotransferase (ALT) 54 U/L (7-40) H 39 U/L (7-40) Alkaline Phosphatase 72 U/L (46-116) 63 U/L (46-116) Aspartate Amino Transferase (AST) 113 U/L (13-40) H 75 U/L (13-40) H Total Bilirubin 0.6 mg/dL (0.2-1.0) 0.5 mg/dL (0.2-1.0) Urinalysis Test 06/05/24 11:31 Urine Color [place] (Yellow) H Urine Clarity Ex.turbid (Clear) Urine pH 6.5 (5.0-9.0) Urine Specific [place] 1.026 (1.001-1.035) Urine Protein 2+ (Negative) H Urine Ketones 1+ (Negative) H Urine Blood Negative /uL (Negative) Urine Nitrite Negative (Negative) Urine Bilirubin 2+ (Negative) H Urine Urobilinogen 12 mg/dL (Negative) H Urine Leukocyte Esterase 3+ /uL (Negative) Urine RBC 21 /hpf (0 - 4) Urine WBC 290 /hpf (0 - 5) Urine Squamous Epithelial Cells Mod /hpf (<5) Urine Bacteria Few /hpf (None Seen) H Urine Hyaline Casts Many /lpf (0 - 2) Urine Mucus Moderate (None Seen) Urine Glucose Normal mg/dL (Normal) Urine Test Negative (Negative) Microbiology Microbiology Date/Time Source Procedure Growth Status 06/05/24 11:31 Voided Urine Urine Culture - Preliminary Resulted Labs and/or images reviewed: Labs reviewed by me, Image(s) reviewed by me Assessment/Plan Assessment/Plan Sepsis secondary to acute urinary tract infection: Urine cultures mixed Acute urinary tract infection: Rocephin Acute hyponatremia ROBBIE Acute hypokalemia potassium 2.5: Improved to 2.9 Hypertension Chronic anxiety Patient feels better afebrile and wants to go home Plan discussed with: Patient My Orders Orders - BAILEE CONCEPCION MD Procedure Category Date Status Time Blood Culture HUMERA 06/06/24 In Process 14:00 Date of Service: Jun 07, 2024 Billing Provider: BAILEE CONCEPCION MD Common Visit Codes: [id number] INP/OBS CARE(HIGH) BAILEE CONCEPCION MD Jun 07, 2024 09:36
--- NOTE | 2024-06-07 09:38 | DVHDS2 ---
Discharge Summary Date of Admission Jun 05, 2024 at 16:28 Date of Discharge: Jun 07, 2024 Admitting Diagnosis Generalized weakness Wounds: None Labs/Diagnostic Data: Laboratory Results Test 06/07/24 05:41 06/05/24 11:31 White Blood Count 3.5 10^3/uL (4.4-10.8) Red Blood Count 3.27 10^6/uL (4.0-5.20) Hemoglobin 11.4 g/dL (12.2-16.2) Hematocrit 33.5 % (36.0-46.0) Mean Corpuscular Volume 102.6 fL (80.0-100.0) Mean Corpuscular Hemoglobin 35.0 pg (28.0-32.0) Mean Corpuscular Hemoglobin Concent 34.1 g/dL (32.0-36.0) Red Cell Distribution Width 15.0 % (11.8-14.3) Platelet Count 135 10^3/uL (140-450) Mean Platelet Volume 8.5 fL (6.9-10.8) Neutrophils (%) (Auto) 32.8 % (37.0-80.0) Lymphocytes (%) (Auto) 53.0 % (10.0-50.0) Monocytes (%) (Auto) 10.8 % (0.0-12.0) Eosinophils (%) (Auto) 2.7 % (0.0-7.0) Basophils (%) (Auto) 0.7 % (0.0-2.0) Neutrophils # (Auto) 1.2 10 ^3/uL (1.6-8.6) Lymphocytes # (Auto) 1.9 10 ^3/uL (0.4-5.4) Monocytes # (Auto) 0.4 10 ^3/uL (0-1.3) Eosinophils # (Auto) 0.1 10 ^3/uL (0-0.8) Basophils # (Auto) 0 10 ^3/uL (0-0.2) Nucleated Red Blood Cells 0.3 % Sodium Level 139 mmol/L (136-145) Potassium Level 2.9 mmol/L (3.5-5.1) Chloride Level 105 mmol/L (98-107) Carbon Dioxide Level 25 mmol/L (20-31) Anion Gap 9 (5-15) Blood Urea Nitrogen < 5 mg/dL (9-23) Creatinine 0.63 mg/dL (0.550-1.02) Glomerular Filtration Rate Calc 115 mL/min (>90) BUN/Creatinine Ratio 7.9 (10.0-20.0) Serum Glucose 93 mg/dL (74-106) Calcium Level 8.8 mg/dL (8.7-10.4) Total Bilirubin 0.5 mg/dL (0.2-1.0) Aspartate Amino Transferase (AST) 75 U/L (13-40) Alanine Aminotransferase (ALT) 39 U/L (7-40) Alkaline Phosphatase 63 U/L (46-116) Total Protein 6.0 g/dL (5.7-8.2) Albumin 3.3 g/dL (3.2-4.8) Urine Color Nicholas (Yellow) Urine Clarity Ex.turbid (Clear) Urine pH 6.5 (5.0-9.0) Urine Specific [place] 1.026 (1.001-1.035) Urine Protein 2+ (Negative) Urine Ketones 1+ (Negative) Urine Blood Negative /uL (Negative) Urine Nitrite Negative (Negative) Urine Bilirubin 2+ (Negative) Urine Urobilinogen 12 mg/dL (Negative) Urine Leukocyte Esterase 3+ /uL (Negative) Urine RBC 21 /hpf (0 - 4) Urine WBC 290 /hpf (0 - 5) Urine Squamous Epithelial Cells Mod /hpf (<5) Urine Bacteria Few /hpf (None Seen) Urine Hyaline Casts Many /lpf (0 - 2) Urine Mucus Moderate (None Seen) Urine Glucose Normal mg/dL (Normal) Urine Test Negative (Negative) Other Laboratory Tests 06/07/24 05:41 Brief Hx & Hospital Course: Admitted for sepsis secondary to urinary tract infection treated with the antibiotics urine cultures came mixed potassium was low 2.5 replaced patient feels better being discharged home on Cipro Zofran and potassium Consults/Reason for consult None Operations or Procedures None Condition at Discharge: Fair Final Diagnosis/Problems List Sepsis secondary to acute urinary tract infection: Urine cultures mixed Acute urinary tract infection: Rocephin Acute hyponatremia ROBBIE Acute hypokalemia potassium 2.5: Improved to 2.9 Hypertension Chronic anxiety Discharge Disposition: Home Discharge Instruct/Medications Diet: Regular Activity: Light activity Follow Up/Referral: Follow up with the primary Dr Medications: Zofran Cipro Potassium Transmitted to pharmacy 35 (Time taken for discharge summary 35 minutes) Discharge Statement: "Patient was advised to return to the ER or call 911 if any headaches, dizziness, shortness of breath, chest pain, abdominal pain, bleeding, fevers, or worsening of medical condition. Patient was counseled about treatment plan, medications, possible side effects, patientverbalized understanding. All questions were answered to the best of my ability. This discharge took greater then 30 minutes in planning, reviewing documentation, counseling the patient, and discussing with other team members." ASSESSMENT ASSESSMENT Hospital Course Improved Assessment Sepsis secondary to acute urinary tract infection: Urine cultures mixed Acute urinary tract infection: Rocephin Acute hyponatremia ROBBIE Acute hypokalemia potassium 2.5: Improved to 2.9 Hypertension Chronic anxiety Date of Service: Jun 07, 2024 Billing Provider: BAILEE CONCEPCION MD Common Visit Codes: 27737-NTU/OBS DISCH DAY >30min BAILEE CONCEPCION MD Jun 07, 2024 09:38
[2024-06-07] MEDS: POTASSIUM EFFERVESENT TAB 25 MEQ PO ONE (10:42)
[2024-06-07 12:19] VITALS: BP 126/69; PULSE 79; RESP 18; TEMP 98.3; O2SAT 98
== END 2024-06-07 13:00 | disposition home or self-care (01) | DRG 720 ==
LOC: ER 10:55 → OVERFLOW 16:28 → CENTRAL 18:17
PROVIDERS: ADMIT Family Medicine; ATTEND Family Medicine
DX: A41.9 Sepsis, unspecified organism (principal); N17.0 Acute kidney failure with tubular necrosis; E87.1 Hypo-osmolality and hyponatremia; E87.6 Hypokalemia; F41.9 Anxiety disorder, unspecified; I10 Essential (primary) hypertension; N39.0 Urinary tract infection, site not specified; Z83.3 Family history of diabetes mellitus; Z80.1 Family history of malignant neoplasm of trachea, bronchus and lung; Z87.891 Personal history of nicotine dependence
CPT/HCPCS: 36415; 80048; 80053; 81001; 81025; 85025; 87040; 87086; G0378; J2405; J3480